=== PATIENT | male | born 1965 | race African-American/Black ===

== ENCOUNTER 2019-09-01 06:38 | Emergency (ER) | payer BC ==
[~2019-09-01] VITALS: Ht 182.9 cm; Wt 102.0 kg
[~2019-09-01 06:38] MED LIST: ATOR40TA70 PO; CIPR-263 PO; DICY20TA54 PO; METR250T PO; OMEP20TA2 PO
[2019-09-01 08:43] LABS: BASOPHILS % 0.4 % (0.0-2.0); EOSINOPHILS % 0.6 % (0.0-5.0); HEMATOCRIT. 44.9 % (42.0-52.0); MEAN CORPUSCULAR HEMOGLOBIN 29.9 pg (28.0-32.0); MEAN CORPUSCULAR VOLUME 89.5 fL (80.0-94.0); MEAN PLATELET VOLUME 7.7 fl (7.4-10.4); MONOCYTES % 4.4 % (2.0-8.0); NEUTROPHILS % 82.6 % (40.0-76.0); PLATELET 227 x1000/uL (130-400); RED BLOOD CELL COUNT 5.01 mill/uL (4.7-6.1)
[2019-09-01 08:50] LABS: CHLORIDE 105 mEq/L (98-107)
[2019-09-01 13:14] VITALS: BP 174/74
== END 2019-09-01 13:19 | disposition home or self-care (01) ==
LOC: ER 06:38
DX: R07.9 Chest pain, unspecified (principal); I10 Essential (primary) hypertension; E78.00 Pure hypercholesterolemia, unspecified; Z79.899 Other long term (current) drug therapy
CPT/HCPCS: 36415; 71045; 83880; 84484; 93005; 99284